=== PATIENT | female | born 1970 | race Caucasian/White ===

== ENCOUNTER 2019-01-29 12:24 | Emergency (ER) | payer OTHER ==
[~2019-01-29] VITALS: Ht 170.2 cm; Wt 142.9 kg
[~2019-01-29 12:24] MED LIST: ACET-704 PO; ACET650T60 PO; BACL20TA PO; CHOL20009 PO; DIPH25CA58 PO; FERR160T4 PO; LISI1TAB7 PO; MELO15TA23 PO; MOME13HF2 IH; RANI150T2 PO
[2019-01-29 13:12] LABS: BASO # 0.1 x10^3/uL (0.0-0.2); BASO % 1 % (0-3); EOS # 0.2 x10^3/uL (0.0-0.7); EOS % 2 % (0-3); HEMATOCRIT 24.8 % (36.0-47.0); HEMOGLOBIN 7.5 g/dL (12.0-15.5); LYMPH # 2.6 x10^3/uL (1.0-4.8); LYMPH % 26 % (24-48); MEAN CORPUSCULAR HEMOGLOBIN 26 pg (25-35); MEAN CORPUSCULAR HGB CONC 30 g/dL (31-37); MEAN CORPUSCULAR VOLUME 84 fL (79-100); MONO # 0.5 x10^3/uL (0.0-1.1); MONO % 5 % (0-9); NEUT # 6.6 x10^3uL (1.8-7.7); NEUT % 66 % (31-73); PLATELET COUNT 356 x10^3/uL (140-400); RED BLOOD COUNT 2.94 x10^6/uL (3.50-5.40); RED CELL DISTRIBUTION WIDTH 15.5 % (11.5-14.5); WHITE BLOOD COUNT 9.9 x10^3/uL (4.0-11.0)
[2019-01-29 13:22] LABS: CALCIUM 9.1 mg/dL (8.5-10.1); CREATININE 0.8 mg/dL (0.6-1.0); GFR 75.9; POTASSIUM 3.7 mmol/L (3.5-5.1)
[2019-01-29] MEDS ORDERED: IV NORMAL SALINE 1000ML BAG 1,000 ML IV ONE (14:15)
[2019-01-29 14:30] VITALS: BP 116/58
--- NOTE | 2019-01-29 15:41 | PHYS DOC ---
Past Medical History Past Medical History: Anemia, Asthma Past Surgical History: Cholecystectomy Alcohol Use: None Drug Use: None Adult General Chief Complaint Chief Complaint: DIZZY/LIGHT HEADED HPI HPI Patient is a 49 year old female who presents the ER for evaluation. Patient with history of dysfunctional uterine bleeding with constantly for the past 60 days. Reports established history of fibroids. Denies any abdominal pain. Patient has been following with her primary care doctor for this is the referred to an RN ENT but has not seen the RN ENT yet. Patient has had difficulty establishing with an RN ENT secondary to insurance coverage. reports generalized fatigue, weakness and some intermittent orthostatic dizziness with standing. Has not required a blood transfusion in the past. Just started on iron supplements 3 days ago. Denies any GI bleed symptoms. Not On any blood thinners. Review of Systems Review of Systems Constitutional: Denies fever or chills [] Respiratory: Denies cough or shortness of breath [] Cardiovascular: Chest pain, no palpitations, no orthopnea. GI: Denies abdominal pain, nausea, vomiting, bloody stools or diarrhea [] : Denies dysuria or hematuria []. Musculoskeletal: Denies back pain or joint pain [] Integument: Denies rash or skin lesions [] Neurologic: Denies headache, focal weakness or sensory changes. some mild intermittent dizziness [] Endocrine: Denies polyuria or polydipsia [] All other systems were reviewed and found to be within normal limits, except as documented in this note. Current Medications Current Medications Current Medications Medications (Trade) Dose Ordered Sig/Briseyda Start Time Stop Time Status Last Admin Dose Admin Sodium Chloride 1,000 ml @ 1,000 mls/hr 1X ONCE 01/29/19 14:15 01/29/19 15:14 DC 01/29/19 14:15 1,000 MLS/HR Allergies Allergies Allergies Uncoded Allergies Type Severity Reaction Last Updated Verified horsradish Allergy Severe Anaphylaxis 03/03/14 Physical Exam Physical Exam Constitutional: obese, non-toxic appearing HENT: Normocephalic, atraumatic, Eyes: PERRLA, EOMI, Neck: Normal range of motion, no tenderness, supple, no stridor. [] Cardiovascular:Heart rate regular rhythm, no murmur [] Lungs & Thorax: Bilateral breath sounds clear to auscultation [] Abdomen: Bowel sounds normal, soft, no tenderness, no masses, no pulsatile masses. [] Skin: Warm, dry, no erythema, no rash. [] Back: No tenderness, no CVA tenderness. [] Extremities: No tenderness, no edema. [] Neurologic: Alert and oriented X 3, no focal deficits noted. [] Psychologic: Affect normal, judgement normal, mood normal. [] Current Patient Data Vital Signs Vital Signs Date Time Temp Pulse Resp B/P (MAP) Pulse Ox O2 Delivery O2 Flow Rate FiO2 01/29/19 14:30 94 23 100 01/29/19 13:22 98.6 156/74 (101) Room Air 98.6 Lab Values Laboratory Tests Test 01/29/19 12:37 01/29/19 12:51 POC Urine HCG, Qualitative Hcg negative (Negative) White Blood Count 9.9 x10^3/uL (4.0-11.0) Red Blood Count 2.94 x10^6/uL (3.50-5.40) L Hemoglobin 7.5 g/dL (12.0-15.5) L Hematocrit 24.8 % (36.0-47.0) L Mean Corpuscular Volume 84 fL (79-100) Mean Corpuscular Hemoglobin 26 pg (25-35) Mean Corpuscular Hemoglobin Concent 30 g/dL (31-37) L Red Cell Distribution Width 15.5 % (11.5-14.5) H Platelet Count 356 x10^3/uL (140-400) Neutrophils (%) (Auto) 66 % (31-73) Lymphocytes (%) (Auto) 26 % (24-48) Monocytes (%) (Auto) 5 % (0-9) Eosinophils (%) (Auto) 2 % (0-3) Basophils (%) (Auto) 1 % (0-3) Neutrophils # (Auto) 6.6 x10^3uL (1.8-7.7) Lymphocytes # (Auto) 2.6 x10^3/uL (1.0-4.8) Monocytes # (Auto) 0.5 x10^3/uL (0.0-1.1) Eosinophils # (Auto) 0.2 x10^3/uL (0.0-0.7) Basophils # (Auto) 0.1 x10^3/uL (0.0-0.2) Sodium Level 140 mmol/L (136-145) Potassium Level 3.7 mmol/L (3.5-5.1) Chloride Level 104 mmol/L (98-107) Carbon Dioxide Level 26 mmol/L (21-32) Anion Gap 10 (6-14) Blood Urea Nitrogen 16 mg/dL (7-20) Creatinine 0.8 mg/dL (0.6-1.0) Estimated GFR (Cockcroft-Gault) 75.9 Glucose Level 140 mg/dL (70-99) H Calcium Level 9.1 mg/dL (8.5-10.1) Laboratory Tests 01/29/19 12:51 Laboratory Tests 01/29/19 12:51 EKG EKG [] Radiology/Procedures Radiology/Procedures [] Course & Med Decision Making Course & Med Decision Making Pertinent Labs and Imaging studies reviewed. (See chart for details) 1601: Hg 7.5. Patient somewhat orthostatic, patient given 1 L fluid with resolution of orthostatics. Patient feeling better. Patient discussed about borderline hemoglobin. Discussed the patient does not indicate transfusion at this time but could in the near future. Advised very close follow-up with her primary care doctor. Advised her to discuss her hemoglobin level with her primary care doctor. Advised her that she would need a repeat hemoglobin check in 3-5 days. Very strict ER return precautions given. Patient verbalized understanding. All questions answered. Dragon Disclaimer Dragon Disclaimer This electronic medical record was generated, in whole or in part, using a voice recognition dictation system. Departure Departure Impression: Primary Impression: Anemia Additional Impressions: Dehydration Dysfunctional uterine bleeding Disposition: 01 HOME, SELF-CARE Condition: IMPROVED Referrals: GORDON EDWARDS MD (PCP) Patient Instructions: Anemia, Nonspecific-Brief, Uterine Bleeding, Dysfunctional, [id number] Additional Instructions: Thank you for coming to [facility]. Please read the attached handouts. Please follow-up with your primary care physician. Return to the ER if your symptoms worsen or you have any other concerns. Please drink plenty fluids to stay hydrated. She needed a repeat hemoglobin check on Saturday. Your level was 7.5 today. Please contact your physician to expedite your referrals to RN ENT. Problem Qualifiers JITENDRA GOMEZ DO Jan 29, 2019 15:41
[2019-03-13] MEDS ORDERED: LISI-334 PO (12:24)
[2019-03-13] MEDS ORDERED: HYDR12.575 PO (12:25)
[2019-03-13] MEDS ORDERED: METF10007 PO (12:27)
[2019-03-13] MEDS ORDERED: SIMV10TA3 PO (12:28)
[2019-03-13] MEDS ORDERED: ALBU2.5V8 INH (12:29)
[2019-03-13] MEDS ORDERED: OMEG1CAP38 PO (12:30)
[2019-03-13] MEDS ORDERED: DOCU-109 PO (12:32)
[2019-03-20] MEDS ORDERED: DOCU-109 PO (13:00)
[2019-03-20] MEDS ORDERED: GABA300C18 PO (13:00)
== END 2019-01-29 16:19 | disposition home or self-care (01) ==
LOC: ER 12:24
DX: D64.9 Anemia, unspecified (principal); E86.0 Dehydration; N93.8 Other specified abnormal uterine and vaginal bleeding; J45.909 Unspecified asthma, uncomplicated; Z88.8 Allergy status to other drugs, medicaments and biological substances
CPT/HCPCS: 36415; 80048; 81025; 85025; 86850; 86900; 86901; 96360; 99284; J7030

== ENCOUNTER → 2019-02-16 | Outpatient (CLI) | payer OTHER ==
[2019-01-29 14:30] VITALS: BP 116/58
[~2019-02-16] MED LIST changes: +ALBU2.5V8 INH; +DOCU-109 PO; +GABA300C18 PO; +HYDR12.575 PO; +LISI-334 PO; +METF10007 PO; +OMEG1CAP38 PO; +SIMV10TA3 PO
--- NOTE | 2019-02-16 16:01 | KCIC ---
EXAM: Pelvic sonogram. HISTORY: Menorrhagia. TECHNIQUE: Sonographic imaging of the pelvis was performed. COMPARISON: None. FINDINGS: The uterus measures 11.6 x 5.3 x 6.6 cm. There is a suspected subseptate uterus. The endometrial stripe measures 11.4 mm within the right aspect of the endometrial cavity and 14.9 mm within the left aspect of the endometrial cavity. The ovaries are not seen, likely obscured due to patient body habitus and bowel gas. There is no free fluid. There is an intrauterine fibroid measuring 2.1 cm in maximum dimension. There is a nabothian cyst within the cervix. IMPRESSION: 1. Suspected small uterine fibroid. 2. Suspected subseptate uterus. The endometrial stripe is within normal limits for the reported premenopausal status of the patient. 2. Obscured ovaries. Electronically signed by: Dara Drake MD (02/16/2019 3:58 PM) [id number]
== END | disposition home or self-care (01) ==
LOC: KCIC US 15:02
PROVIDERS: ATTEND Obstetrics & Gynecology
DX: N88.8 Other specified noninflammatory disorders of cervix uteri (principal)
CPT/HCPCS: 76830; 76856

== ENCOUNTER → 2019-03-13 | Outpatient (CLI) | payer OTHER ==
[2019-03-13 12:35] LABS: BASO # 0.1 x10^3/uL (0.0-0.2); BASO % 1 % (0-3); EOS # 0.4 x10^3/uL (0.0-0.7); EOS % 4 % (0-3); HEMATOCRIT 31.7 % (36.0-47.0); HEMOGLOBIN 9.9 g/dL (12.0-15.5); LYMPH # 2.4 x10^3/uL (1.0-4.8); LYMPH % 27 % (24-48); MEAN CORPUSCULAR HEMOGLOBIN 25 pg (25-35); MEAN CORPUSCULAR HGB CONC 31 g/dL (31-37); MEAN CORPUSCULAR VOLUME 80 fL (79-100); MONO # 0.4 x10^3/uL (0.0-1.1); MONO % 5 % (0-9); NEUT # 5.8 x10^3uL (1.8-7.7); NEUT % 64 % (31-73); PLATELET COUNT 264 x10^3/uL (140-400); RED BLOOD COUNT 3.96 x10^6/uL (3.50-5.40); RED CELL DISTRIBUTION WIDTH 15.2 % (11.5-14.5); WHITE BLOOD COUNT 9.1 x10^3/uL (4.0-11.0)
--- NOTE | 2019-03-13 13:00 | EKG ---
[facility] [address] [place] [address] Test Date: 2019-03-13 Test Time: 12:59:20 Pat Name: WILLIAM YOUSSEF Department: Room: Gender: F Endodontics Dentist: ALESSANDRO : 1970 Requested By: CHEL BLACK Order Number: [id number] Reading MD: Oren Garcia Measurements Intervals [place] Rate: 79 P: 42 DE: 150 QRS: 0 QRSD: 84 T: 36 QT: 370 QTc: 425 Interpretive Statements SINUS RHYTHM LEFTWARD AXIS Electronically Signed On 03-17-2019 8:15:54 CDT by Oren Garcia
--- NOTE | 2019-03-17 10:56 | NUR ---
FAXED PRE - OP TEST REPORTS TO 'S OFFICE 03/16/2019 AT 0911 AND RECEIVED TRANSMITTAL CONFIRMATION.
== END | disposition home or self-care (01) ==
LOC: SURGPAT 11:53
PROVIDERS: ATTEND Obstetrics & Gynecology
DX: Z01.818 Encounter for other preprocedural examination (principal); N81.4 Uterovaginal prolapse, unspecified
CPT/HCPCS: 36415; 85025; 93005

== ENCOUNTER 2019-03-19 07:30 | Observation (INO) | payer OTHER ==
[2019-03-19] VITALS (7 sets, daily range): BP systolic 127–134; BP diastolic 71–75
[~2019-03-19] VITALS: Ht 170.2 cm; Wt 140.6 kg
[~2019-03-19 07:30] MED LIST changes: -GABA300C18 PO; +HYDROmorphone 2 MG/ML VIAL IV PRN; +IV RINGERS,LACTATED 1000ML 1,000 ML IV SCH; +LIDOCAINE 1% PF 2 ML VIAL. ID PRN; +MORPHINE SULFATE 2 MG/ML VIAL. IV PRN; +ONDANSETRON PF 4 MG/2 ML VIAL. IV PRN; +PROCHLORPERAZINE 10 MG/2 ML VIAL. IV PRN; +ceFAZolin SODIUM 3 GM in IV DEXTROSE 5% 100ML 100 ML IV PRN; +fentaNYL PF VIAL 100 MCG/2 ML VIAL IV PRN
[2019-03-19] MEDS ORDERED: SCOPOLAMINE 1.5MG PATCH. TD ONE (08:15)
[2019-03-19 08:46] LABS: U PREG PATIENT NEGATIVE (NEG)
[2019-03-19] MEDS ORDERED: SEVOFLURANE > 120 MINUTES. IH ONE (08:46)
[2019-03-19] MEDS ORDERED: ROCURONIUM 50 MG/5 ML VIAL. ONE ×2 (08:46→09:55)
[2019-03-19] MEDS ORDERED: fentaNYL PF VIAL 100 MCG/2 ML VIAL ONE ×2 (08:46→11:40)
[2019-03-19] MEDS ORDERED: NEOSTIGMINE METHYLSULFATE 5 MG/5 ML SYRINGE. ONE (08:46)
[2019-03-19] MEDS ORDERED: MIDAZOLAM HCL/PF 2 MG/2 ML VIAL. ONE (08:47)
[2019-03-19] MEDS ORDERED: PROPOFOL 20 ML IV ONE (08:47)
[2019-03-19] MEDS ORDERED: GLYCOPYRROLATE 1 MG/5 ML VIAL. ONE (08:47)
[2019-03-19] MEDS ORDERED: LIDOCAINE 2% PF 5 ML VIAL. ONE (08:47)
[2019-03-19] MEDS ORDERED: ONDANSETRON PF 4 MG/2 ML VIAL. ONE (08:47)
[2019-03-19] MEDS ORDERED: LIDOCAINE 1%/EPI 1:100,000 20 ML VIAL. ONE (08:48)
[2019-03-19] MEDS ORDERED: LIDOCAINE 1%/EPI 1:100,000 20 ML VIAL. INJ ONE (09:30)
[2019-03-19] MEDS ORDERED: DEXAMETHASONE SOD PHOS 4 MG/ML VIAL ONE (09:52)
[2019-03-19] MEDS ORDERED: ESTROGENS, CONJ VAGINAL CREAM 30GM TUBE. ONE (10:12)
[2019-03-19] MEDS ORDERED: ESTROGENS, CONJ VAGINAL CREAM 30GM TUBE. TP ONE (11:14)
--- NOTE | 2019-03-19 11:32 | PDOC ---
BRIEF OPERATIVE NOTE Date: Mar 19, 2019 Pre-Op Diagnosis 1. AUB 2. Incomplete Uterovaginal Prolapse 3. SILVIO Post-Op Diagnosis Same Procedure Performed TVH, BSO Bladder Sling Anterior and Posterior Colporrhaphy Surgeon Dr. Ng Anesthesia Type: General Blood Loss 50 ml Specimens Obtained uterus, cervix, david. fallopian tubes and ovaries Findings Incomplete Uterovaginal prolapse and SILVIO Complications none Operative Note See dictation KARMA NG Jr, MD Mar 19, 2019 11:32
[2019-03-19] MEDS: fentaNYL PF VIAL 100 MCG/2 ML VIAL IV PRN ×2 (11:41→11:55)
[2019-03-19] MEDS ORDERED: 0.9 % SODIUM CHLORIDE 10 ML DISP.SYRIN. IV PRN (11:45)
[2019-03-19] MEDS ORDERED: PROCHLORPERAZINE 10 MG/2 ML VIAL. IV PRN (11:45)
[2019-03-19] MEDS ORDERED: diphenhydrAMINE 50 MG/ML VIAL IV PRN (11:45)
[2019-03-19] MEDS ORDERED: DEXTROSE 50% 25 GM / 50ML DISP.SYRIN. IV PRN (11:45)
[2019-03-19] MEDS ORDERED: ZOLPIDEM 5 MG TABLET. PO PRN (11:45)
[2019-03-19] MEDS ORDERED: CALCIUM CARBONATE 500 MG TAB.CHEW PO PRN (11:45)
[2019-03-19] MEDS ORDERED: KETOROLAC 30 MG/ML VIAL. IV PRN (11:45)
[2019-03-19] MEDS ORDERED: ONDANSETRON PF 4 MG/2 ML VIAL. IV PRN (11:45)
[2019-03-19] MEDS ORDERED: diphenhydrAMINE HCL 25 MG CAPSULE PO PRN (11:45)
[2019-03-19] MEDS ORDERED: SIMETHICONE 80 MG TAB.CHEW PO PRN (11:45)
--- NOTE | 2019-03-19 12:11 | OP ---
DATE OF SURGERY: 03/19/2019 PREOPERATIVE DIAGNOSES: 1. Abnormal uterine bleeding. 2. Incomplete uterovaginal prolapse. 3. Stress urinary incontinence. POSTOPERATIVE DIAGNOSES: 1. Abnormal uterine bleeding. 2. Incomplete uterovaginal prolapse. 3. Stress urinary incontinence. PROCEDURE: 1. TVH BSO. 2. Bladder sling. 3. Anterior and posterior colporrhaphy. SURGEON: Karma Ng MD. ANESTHESIA: GETA. ESTIMATED BLOOD LOSS: 50 mL. COMPLICATIONS: None. FINDINGS: Incomplete uterovaginal prolapse and stress urinary incontinence. SUMMARY: A 49-year-old female with abnormal uterine bleeding, incomplete uterovaginal prolapse as well as stress urinary incontinence required surgical treatment. The patient was counseled on risks, benefits and expectations and voiced clear understanding to proceed. DESCRIPTION OF PROCEDURE: The patient was taken to surgery suite and placed in dorsal lithotomy position. She was prepped with Betadine solution for vaginal prep and draped in a sterile fashion. After adequate anesthesia, weighted speculum and curved Inocencio placed vaginally. Anterior and posterior lip of the cervix grasped with Jose Antonio clamps. 1% lidocaine with epinephrine was injected in a circumferential manner. Bovie cautery was performed in a circumferential manner. The vaginal mucosa was then dissected away from the lower uterine segment using a moist Ray-Vern. Parametrial tissue was clamped bilaterally with curved Vasyl clamps, cut and suture ligated with 2-0 Vicryl suture. The posterior cul-de-sac was then entered sharply with curved Santacruz scissors. Uterosacral ligaments were clamped bilaterally, cut, and suture ligated along with the cardinal ligaments. Two additional pedicles were taken just adjacent to the uterus, which were clamped with curved Vasyl clamps, cut and suture ligated with 2-0 Vicryl suture. Anterior cul-de-sac was entered sharply with Metzenbaum scissors. The uterus was then retroverted. The round ligament and uteroovarian pedicles were clamped bilaterally, cut, and suture ligated. The uterus was removed also using a coring method with the scalpel. In order to remove the uterus and cervix, the left fallopian tube and ovary were visualized, grasped with Babcocks. The left infundibulopelvic ligament was then isolated and clamped with curved Vasyl clamp. The left fallopian tube and ovary were then removed. The pedicle was tied with 2-0 Vicryl suture. Same process took place with the right adnexa. A modified Saucedo's culdoplasty was performed incorporating the uterosacral ligaments bilaterally. The remainder of the vaginal cuff was reapproximated using 2-0 Vicryl suture in a [id number] manner. Allis clamp was placed 1 cm below the urethral orifice. Second Allis clamp was placed 4 cm below the first Allis clamp on the anterior vaginal wall mucosa. 1% lidocaine with epinephrine was injected between the 2 Allis clamps in a linear fashion as well as in the periurethral space. 1% lidocaine with epinephrine was also injected in the groin region where the insertion of the trocars for the Obtryx would be placed. Scalpel was utilized to make an incision at the insertion points in the groin as well as between the 2 Allis clamps in a linear fashion. With aid of Metzenbaum scissors, the vaginal mucosa was dissected away from the pubovesical fascia as well as developing the periurethral space all the way to the obturator foramen, which was dissected sharply along with blunt dissection with my index finger. The right trocar was then placed through the groin incision and passed through the obturator foramen and guided with the index finger. The insertion point was at the level of the clitoris where the abductus longus attached to pubic ramus bilaterally. Same process took place with the left trocar. Cystoscopy was performed in which the bladder was normal in appearance. No evidence of perforation or injury. Also visualized with the cystoscope was the uterovesical junctions were functioning normally. The cystoscope was then removed. The bladder sling was then adjusted to a loose fit using 7 Hegar dilator. The excess mesh at the skin level was excised with suture scissors and the skin incision was reapproximated using Dermabond. We then proceeded with anterior colporrhaphy in which the pubovesical fascia was reapproximated using 2-0 Vicryl suture in an interrupted fashion. The excess anterior vaginal wall mucosa was removed with Metzenbaum scissors. The remaining anterior vaginal wall mucosa was reapproximated using 2-0 Vicryl suture in hgyjvx-wr-[id number] manner. A finger was placed rectally to re-identify the rectocele. A long Allis clamp was placed about 3 cm into the vaginal vault on the posterior vaginal wall mucosa. Two Allis clamps were placed on the posterior fourchette in which 1% lidocaine with epinephrine was injected between the 2 Allis clamps as well as the posterior vaginal wall mucosa up to the Allis clamp 3 cm into the vaginal vault. Scalpel was utilized to make a transverse incision between the 2 Allis clamps on the posterior fourchette. The Metzenbaum scissors were used to undermine the posterior vaginal wall mucosa. This incision was then incised at the midline. The posterior vaginal wall mucosa was dissected away from the rectovaginal fascia. The rectovaginal fascia was then reapproximated using 2-0 Vicryl suture in an interrupted fashion. The excess posterior vaginal wall mucosa was excised using Metzenbaum scissors. The remaining posterior vaginal wall mucosa was reapproximated using 2-0 Vicryl suture in [id number] manner. Premarin soaked vaginal packing was then placed. A Jenkins catheter was also placed. The patient tolerated the procedure well and was taken to recovery room in stable condition. The sponge and needle count were correct x 3. Instrument count was not performed prior to surgery; therefore, x-ray was performed, which was negative. KARMA NG MD DR: KELECHI/saúl JOB#: [id number] / [id number]
[2019-03-19] MEDS ORDERED: OPIUM/BELLADONNA 30/16.2MG SUPP.RECT. PR PRN (13:30)
[2019-03-19] MEDS: GABAPENTIN 300 MG CAPSULE. PO SCH ×2 (13:36→22:48)
[2019-03-19] MEDS: oxyCODONE/APAP 5/325 1 TAB TABLET PO PRN ×2 (13:36→19:35)
--- NOTE | 2019-03-19 17:41 | RAD ---
AP view of the abdomen Clinical indications: Postop study after hysterectomy. Counts correct. FINDINGS/ IMPRESSION: No metallic or radiopaque foreign body is evident. No postoperative functional ileus or bowel obstruction is evident. Electronically signed by: Paxton Jackson MD (03/19/2019 5:38 PM) [place] [id number]
[2019-03-20 05:36] LABS: BASO % 0 % (0-3); EOS % 0 % (0-3); HEMATOCRIT 27.3 % (36.0-47.0); HEMOGLOBIN 8.9 g/dL (12.0-15.5); LYMPH # 1.7 x10^3/uL (1.0-4.8); LYMPH % 19 % (24-48); MEAN CORPUSCULAR HEMOGLOBIN 26 pg (25-35); MEAN CORPUSCULAR HGB CONC 33 g/dL (31-37); MEAN CORPUSCULAR VOLUME 80 fL (79-100); MONO # 0.8 x10^3/uL (0.0-1.1); MONO % 9 % (0-9); NEUT # 6.4 x10^3uL (1.8-7.7); NEUT % 72 % (31-73); PLATELET COUNT 234 x10^3/uL (140-400); RED CELL DISTRIBUTION WIDTH 16.2 % (11.5-14.5); WHITE BLOOD COUNT 8.9 x10^3/uL (4.0-11.0)
[2019-03-20] MEDS: GABAPENTIN 300 MG CAPSULE. PO SCH ×2 (06:00→19:00)
[2019-03-20] MEDS: oxyCODONE/APAP 5/325 1 TAB TABLET PO PRN ×2 (06:01→19:01)
[2019-03-20 06:34] VITALS: BP 148/83
[2019-03-20 11:45] VITALS: BP 136/78
--- NOTE | 2019-03-20 12:56 | PDOC ---
SURGICAL PROGRESS NOTE Subjective Pt. stable and pain controlled. No complaints. Vital Signs Vital Signs Date Time Temp Pulse Resp B/P (MAP) Pulse Ox O2 Delivery O2 Flow Rate FiO2 03/20/19 06:34 98.5 93 16 148/83 (104) 98 Room Air 98.5 03/19/19 13:40 8.0 I&O Intake and Output 03/20/19 06:59 Intake Total 5660 ml Output Total 2275 ml Balance 3385 ml Intake Oral 1810 ml IV Total 1600 ml Other 2250 ml Output Urine Total 2225 ml Estimated Blood Loss 50 ml PATIENT HAS A GOMEZ: No General: Alert, Oriented X3, Cooperative HEENT: Atraumatic Lungs: Clear to auscultation Heart: Regular rate Abdomen: Normal bowel sounds, Soft, No tenderness, No masses Psych/Mental Status: Mental status NL Labs Laboratory Tests Test 03/19/19 07:50 03/19/19 08:09 03/19/19 11:43 03/20/19 05:10 Urine Test Negative (NEG) Glucose (Fingerstick) 94 mg/dL (70-99) 120 mg/dL (70-99) White Blood Count 8.9 x10^3/uL (4.0-11.0) Red Blood Count 3.40 x10^6/uL (3.50-5.40) Hemoglobin 8.9 g/dL (12.0-15.5) Hematocrit 27.3 % (36.0-47.0) Mean Corpuscular Volume 80 fL (79-100) Mean Corpuscular Hemoglobin 26 pg (25-35) Mean Corpuscular Hemoglobin Concent 33 g/dL (31-37) Red Cell Distribution Width 16.2 % (11.5-14.5) Platelet Count 234 x10^3/uL (140-400) Neutrophils (%) (Auto) 72 % (31-73) Lymphocytes (%) (Auto) 19 % (24-48) Monocytes (%) (Auto) 9 % (0-9) Eosinophils (%) (Auto) 0 % (0-3) Basophils (%) (Auto) 0 % (0-3) Neutrophils # (Auto) 6.4 x10^3uL (1.8-7.7) Lymphocytes # (Auto) 1.7 x10^3/uL (1.0-4.8) Monocytes # (Auto) 0.8 x10^3/uL (0.0-1.1) Eosinophils # (Auto) 0.0 x10^3/uL (0.0-0.7) Basophils # (Auto) 0.0 x10^3/uL (0.0-0.2) Laboratory Tests Test 03/20/19 05:10 White Blood Count 8.9 x10^3/uL (4.0-11.0) Red Blood Count 3.40 x10^6/uL (3.50-5.40) Hemoglobin 8.9 g/dL (12.0-15.5) Hematocrit 27.3 % (36.0-47.0) Mean Corpuscular Volume 80 fL (79-100) Mean Corpuscular Hemoglobin 26 pg (25-35) Mean Corpuscular Hemoglobin Concent 33 g/dL (31-37) Red Cell Distribution Width 16.2 % (11.5-14.5) Platelet Count 234 x10^3/uL (140-400) Neutrophils (%) (Auto) 72 % (31-73) Lymphocytes (%) (Auto) 19 % (24-48) Monocytes (%) (Auto) 9 % (0-9) Eosinophils (%) (Auto) 0 % (0-3) Basophils (%) (Auto) 0 % (0-3) Neutrophils # (Auto) 6.4 x10^3uL (1.8-7.7) Lymphocytes # (Auto) 1.7 x10^3/uL (1.0-4.8) Monocytes # (Auto) 0.8 x10^3/uL (0.0-1.1) Eosinophils # (Auto) 0.0 x10^3/uL (0.0-0.7) Basophils # (Auto) 0.0 x10^3/uL (0.0-0.2) Assessment/Plan A: POD#1 s/p TVH, BSO, A&P Repair and BLadder Sling P: Will replace gomez cath since large residual volume with bladder scanner. Will complete bladder challenge this evening. D/c home. F/u in 2 weeks. KARMA FLOWERS Jr, MD Mar 20, 2019 12:56
[2019-03-20] MEDS ORDERED: GABA300C18 PO (13:00)
[2019-03-20] MEDS ORDERED: DOCU-109 PO (13:00)
--- NOTE | 2019-03-20 13:07 | DISCH ---
DISCHARGE INSTRUCTIONS Condition on Discharge Condition on Discharge: Stable Activity After Discharge Activity Instructions for Disc: Activity as tolerated, Avoid exertion Bathing Instructions: Shower-keep dressing dry Lifting Instructions after Dis: No heavy lifting, No pulling or pushing, Do not lift >10 pounds Driving Instructions after Dis: No driving for 2 weeks Sexual Activity Restrictions: nothing in vagina for 6 weeks Diet after Discharge Diet after Discharge: Regular Wound Incision Care Wound/Incision Care: Ice to area for comfort Contacting the DRSakshi after DC Call your doctor for: If your condition worsens Follow-Up Follow Up With: Dr Ng in 2 weeks KARMA NG Jr, MD Mar 20, 2019 13:07
--- NOTE | 2019-03-20 15:26 | NUR ---
1200 gomez cath placed for bladder challenge.
[2019-03-20 15:45] VITALS: BP 130/63
[2019-03-20 18:36] VITALS: BP 130/63
--- NOTE | 2019-03-20 19:00 | NUR ---
1730 bladder challenge repeated with 300cc of NS pt only able to void 100 cc gomez cath replaced and discharge instructions given pt verbalized understanding
--- NOTE | 2019-03-20 19:03 | NUR ---
leg bag given and pt instructed on use
--- NOTE | 2019-03-23 15:06 | PATHOLOGY ---
[facility] Accession Number: [id number] . 01 Material submitted: . uterus - UTERUS WITH CERVIX AND BILATERAL FALLOPIAN TUBES AND OVARIES . 01 Clinical history: . AUB, stress urinary incont . 02 Diagnosis: Segments of uterine corpus with attached cervix and separate detached bilateral fallopian tubes and ovaries, vaginal hysterectomy with bilateral salpingo-oophorectomy: - Mild chronic cervicitis with focal squamous metaplasia. - Nabothian cysts, cervix. - Slightly disordered proliferative endometrium. - Adenomyosis, uterine corpus, subbasal, focal. - Leiomyoma, uterine corpus, intramural. - Congestion of bilateral fallopian tubes. - Focal subserosal endometriosis and paratubal cyst of fallopian tube, side indeterminate. - Focal cystic endometriosis of ovary, side indeterminate. - Cystic follicles of ovary, bilateral,several. ([facility] 03/23/2019) [facility]/03/23/2019 . 02 Comment: There is no evidence of malignancy. ([facility] 03/23/2019) . 02 Electronically signed: . Shane Dubon MD, Pathologist NPI- [id number] . 01 Gross description: . The specimen is received in formalin, labeled "Norma Poole, uterus with cervix, bilat fallopian tubes and ovaries" and consists of a partial uterine corpus with attached cervix (9.6 x 7.5 x 5.4 cm) and separate segment of uterine corpus (6.6 x 5.7 x 5.7 cm) weighing 234 g combined. Received separately are 2 bilateral tubo-ovarian complexes with a suture on one with no orientation provided. The sutured complex weighs 9 g and consists of a fimbriated fallopian tube (4.9 cm in length and 0.5 cm in diameter attached to a cystic and partially disrupted ovary (2.9 x 2.3 x 1.9 cm). The nonsutured complex weighs 6 g and consists of a fimbriated fallopian tube (3.3 cm in length and 0.5 cm in diameter attached to a 2.5 x 2.2 x 1.1 cm ovary. The uterine serosa is clay-gresham, smooth, and glistening. The 0.6 cm oval cervical os is lined by glistening pink-gresham ectocervical mucosa. Both segments of uterine corpus/cervix are bivalved to reveal a smooth and corrugated endocervical canal measuring 3.0 cm in length. The identifiable endometrium is pink-gresham measuring 0.1 cm. The cervix reveals nabothian cysts of both the anterior and posterior aspects. The myometrium is pink-gresham and trabeculated with a single intramural nodule measuring 1.1 x 1.0 cm. The cut surfaces of the nodule are homogeneous white and whorled without hemorrhage, necrosis, or calcifications. No additional masses or lesions are identified . Both the fimbriated fallopian tubes are clay-gresham, smooth, and shiny with sectioning reveals each to have a well-defined central lumen and no gross lesions. Sectioning the sutured tubo-ovarian complex ovary reveals multiple uniloculated cysts with one containing blood clot and the others clear fluid. The cyst linings are smooth without papillary excrescences. Sectioning the nonsutured ovary reveals a uniloculated cyst containing hemorrhagic material. Nailer Hand sections are submitted as follows: . A1: Anterior cervix A2: Posterior cervix A3-A4: Opposing endomyometrium A5: Nodule A5-A6: Sutured tubo-ovarian complex A7-A8: Non-sutured tubo-ovarian complex (SDY; 03/20/2019) SYU/SYU . 02 Pathologist provided ICD-10: N72, N80.0, D25.1, N80.2, N83.8 . 02 CPT . 496363 Specimen Comment: A courtesy copy of this report has been sent to Specimen Comment: [phone]. Specimen Comment: Report sent to Performed at: [address], [place], [place] [id number] MD Geronimo Balbuena MD Phone: [phone] Performed at: 02 [facility] [address] [place], [place] [id number] MD Shane Dubon MD Phone: [phone]
== END 2019-03-20 19:18 | disposition home or self-care (01) ==
LOC: SURG 07:30 → 3 NORTH 11:52
PROVIDERS: ADMIT Obstetrics & Gynecology; ATTEND Obstetrics & Gynecology
DX: N93.9 Abnormal uterine and vaginal bleeding, unspecified (principal); N81.2 Incomplete uterovaginal prolapse; N39.3 Stress incontinence (female) (male); R32 Unspecified urinary incontinence; E11.9 Type 2 diabetes mellitus without complications; E78.5 Hyperlipidemia, unspecified; I10 Essential (primary) hypertension; E66.9 Obesity, unspecified; Z98.890 Other specified postprocedural states
CPT/HCPCS: 36415; 57260; 57288; 58262; 74018; 81025; 82962; 85025; 86850; 86900; 86901; A7015; G0378; G0379; J1100; J1885; J2001; J2250; J2405; J2704; J2710; J3010; J3490; J7030; J7120; 88307; C1771

== ENCOUNTER → 2021-07-19 | Outpatient (CLI) | payer OTHER ==
[~2021-07-19] MED LIST changes: +GABA300C18 PO; -HYDROmorphone 2 MG/ML VIAL IV PRN; -IV RINGERS,LACTATED 1000ML 1,000 ML IV SCH; -LIDOCAINE 1% PF 2 ML VIAL. ID PRN; -LISI-334 PO; +LISI1TAB20 PO; -LISI1TAB7 PO; +LISI20TA18 PO; -MORPHINE SULFATE 2 MG/ML VIAL. IV PRN; -ONDANSETRON PF 4 MG/2 ML VIAL. IV PRN; -PROCHLORPERAZINE 10 MG/2 ML VIAL. IV PRN; +SIMV10TA15 PO; -SIMV10TA3 PO; -ceFAZolin SODIUM 3 GM in IV DEXTROSE 5% 100ML 100 ML IV PRN; -fentaNYL PF VIAL 100 MCG/2 ML VIAL IV PRN
--- NOTE | 2021-07-19 15:30 | KCIC ---
EXAM: Carotid Doppler sonogram. HISTORY: Confusion. Speech disturbance. Strokelike symptoms. Atherosclerosis. TECHNIQUE: Booker scale and color Doppler sonographic evaluation of the neck with spectral waveform raghavendra lysis was performed and static images are submitted for review. FINDINGS: The peak systolic velocity within the right common carotid artery is 151 cm/sec. The peak s ystolic velocity within the right internal carotid artery is 99 cm/sec and the end diastolic velocity within the right internal carotid artery is 44 cm/sec. The right ICA/CCA ratio is 0.66. The peak systolic velocity within the left common carotid artery is 131 cm/sec. The peak systolic liss ocity within the left internal carotid artery is 88 cm/sec and the end diastolic velocity within the left internal carotid artery is 31 cm/sec. The left ICA/CCA ratio is 0.67. There is normal antegrade flow within both vertebral arteries. IMPRESSION: Doppler findings consistent with less than 50 percent stenosis involving the internal car otid arteries. PQRS Compliance Statement - Stenosis calculations for CT, MR and conventional angiography are based u cassi measurement of the distal ICA diameter in accordance with the NASCET methodology. Stenosis calcu lations for carotid ultrasound studies are derived from validated velocity criteria which are known t o correlate with the NASCET methodology. Electronically signed by: Dara Drake MD (07/19/2021 3:28 PM) [id number]
== END ==
LOC: KCIC US 14:18
PROVIDERS: ATTEND Family Medicine
DX: H53.453 Other localized visual field defect, bilateral (principal); R41.0 Disorientation, unspecified; R47.9 Unspecified speech disturbances
CPT/HCPCS: 93880